=== PATIENT | female | born 1970 | race Two or more races ===

== ENCOUNTER 2022-02-20 15:33 | Emergency (ER) | payer SELFPAY ==
[~2022-02-20] VITALS: Ht 162.6 cm; Wt 65.9 kg
[2022-02-20 16:17] LABS: COVID AG,FIA SOURCE NASAL SWAB
[2022-02-20 16:48] LABS: INFLUENZA TYPE A NEGATIVE FOR TYPE A (NEGATIVE); INFLUENZA TYPE B NEGATIVE FOR TYPE B (NEGATIVE)
[2022-02-20] MEDS ORDERED: HYDROCODONE/ACETAMINOPHEN 5-325 MG TABLET PO ONE (17:15)
[2022-02-20] MEDS ORDERED: GuaiFENesin/D-METHORPHAN [SUGAR-FREE] 200-20MG/10 ML SYRUP UDCUP PO ONE (17:15)
[2022-02-20 17:24] LABS: BASOPHILS % (AUTO) 0.5 % (0.0-2.0); EOSINOPHILS % (AUTO) 0.8 % (1.0-6.0); HEMATOCRIT 44.3 % (36-46); HEMOGLOBIN 14.8 g/dL (12.0-16.0); LYMPHOCYTES # (AUTO) 1.9 K/uL (1.0-4.8); MEAN CORPUSCULAR HEMOGLOBIN 32.4 pg (26.0-34.0); MEAN CORPUSCULAR HGB CONC 33.4 G/dL (31.0-37.0); MEAN CORPUSCULAR VOLUME 97 fL (80-100); MONOCYTES # (AUTO) 0.3 K/uL (0.1-1.0); MONOCYTES % (AUTO) 4.7 % (2.0-9.0); NEUTROPHILS # (AUTO) 3.9 K/uL (1.8-7.7); PLATELET COUNT (AUTO) 327 K/uL (150-450); RED BLOOD CELL COUNT(AUTO) 4.58 MIL/uL (4.00-5.20); RED CELL DISTRIBUTION WIDTH 12.7 % (11.5-14.5)
[2022-02-20 17:35] LABS: APPEARANCE,URINE CLEAR (CLEAR); BILIRUBIN,URINE NEGATIVE (NEGATIVE); GLUCOSE, URINE (UA) NEGATIVE (NEGATIVE); KETONES,URINE NEGATIVE (NEGATIVE); LEUKOCYTE ESTERASE ,URINE SMALL (NEGATIVE); OCCULT BLOOD,URINE NEGATIVE (NEGATIVE); PH,URINE 6.5 (5.0-8.0); PROTEIN,URINE NEGATIVE (NEGATIVE); SPECIFIC GRAVITIY, URINE 1.017 (1.003-1.030); UROBILINOGEN,URINE <=1.0 mg/dL (<=1.0)
[2022-02-20 17:40] LABS: CALCIUM, TOTAL 9.3 mg/dL (8.8-10.5); CREATININE 0.98 mg/dL (0.60-1.30); POTASSIUM 4.9 mmol/L (3.5-5.1)
[2022-02-20 17:45] LABS: BACTERIA,URINE Many /HPF (None Seen); RBC,URINE 0-2 /HPF (0-2); SQUAMOUS EPITHELIAL CELL,UR Few /LPF (None Seen)
[2022-02-20] MEDS ORDERED: HYDR-4723 PO (17:49)
[2022-02-20] MEDS ORDERED: IBUP-1554 PO (17:49)
[2022-02-20] MEDS ORDERED: GUAIFDM PO (17:49)
[2022-02-20 17:55] LABS: NITRATE,URINE POSITIVE (NEGATIVE)
[2022-02-20 18:06] VITALS: BP 124/72
[2022-02-20] MEDS ORDERED: NIRM1TAB PO (18:28)
== END 2022-02-20 19:17 | disposition home or self-care (01) ==
LOC: EMS 15:42
DX: U07.1 COVID-19 (principal); J20.9 Acute bronchitis, unspecified; F15.90 Other stimulant use, unspecified, uncomplicated; F17.210 Nicotine dependence, cigarettes, uncomplicated; Z79.899 Other long term (current) drug therapy
CPT/HCPCS: 80048; 81001; 85025; 87086; 87186; 87804; 99283

== ENCOUNTER 2022-05-20 15:48 | Emergency (ER) | payer SELFPAY ==
[~2022-05-20 15:48] MED LIST: GUAIFDM PO; HYDR-4723 PO; IBUP-1554 PO; NIRM1TAB4 PO
== END 2022-05-20 16:33 | disposition left against medical advice (07) ==
LOC: EMS 15:49
DX: R10.9 Unspecified abdominal pain (principal); Z53.21 Procedure and treatment not carried out due to patient leaving prior to being seen by health care provider